=== PATIENT | female | born 1980 | race Caucasian/White ===

== ENCOUNTER → 2024-03-28 12:32 | Outpatient (REF) | payer BC, SELFPAY | LOC: HWWDC 12:32 | PROVIDERS: ATTENDING PHYSICIAN Obstetrics & Gynecology; FAMILY PHYSICIAN Family Medicine | DX: Z12.31 Encounter for screening mammogram for malignant neoplasm of breast (principal) | CPT/HCPCS: 77063; 77067 ==

== ENCOUNTER → 2025-05-09 08:53 | Outpatient (REF) | payer BC, SELFPAY | LOC: WDC 08:53 | PROVIDERS: ATTENDING PHYSICIAN Obstetrics & Gynecology; FAMILY PHYSICIAN Family Medicine | DX: R92.8 Other abnormal and inconclusive findings on diagnostic imaging of breast (principal) | CPT/HCPCS: 76642; 77062; 77066 ==

== ENCOUNTER → 2025-07-10 07:57 | Outpatient (REF) | payer BC, SELFPAY | LOC: HWRAD 07:57 | PROVIDERS: ATTENDING PHYSICIAN Obstetrics & Gynecology; FAMILY PHYSICIAN Family Medicine | DX: R10.20 Pelvic and perineal pain unspecified side (principal) | CPT/HCPCS: 76830; 76856 ==